=== PATIENT | male | born 1950 | race Caucasian/White ===

== ENCOUNTER 2020-08-25 23:11 | Observation (INO) | payer MEDICARE, MEDICAID ==
[~2020-08-25] VITALS: Ht 172.7 cm; Wt 97.6 kg
[2020-08-25] MEDS ORDERED: METO25TA35 PO (23:27)
[2020-08-25] MEDS ORDERED: ASPI-963 PO (23:27)
[2020-08-25] MEDS ORDERED: ATOR40TA PO (23:27)
--- NOTE | 2020-08-25 23:41 | NUR ---
70M COMES IN FOR CP X3-4 DAYS HX OF MD X2, DAUGHTER AT BEDSIDE, PT PLACED ON ALL MONITORING VSS, NADN AT THIS TIME. PIV STARTED, NO NEEDS AT THIS TIME
[2020-08-25 23:53] LABS: BASOPHILS % (AUTO) 1 % (0-1); EOSINOPHILS % (AUTO) 5 % (1-7); LYMPHOCYTES % (AUTO) 33 % (22-44); MEAN CORPUSCULAR HEMOGLOBIN 30.4 pg (27.5-34.5); MEAN CORPUSCULAR HGB CONC 34.2 g/dL (33.2-36.2); MEAN PLATELET VOLUME 7.3 fL (7.4-10.4); MONOCYTES % (AUTO) 10 % (2-9); NEUTROPHILS % (AUTO) 51 % (42-75); PLATELET COUNT 229 x10^3/uL (130-400); RED BLOOD COUNT 5.35 x10^6/uL (4.38-5.82); RED CELL DISTRIBUTION WIDTH 14.6 % (9.4-14.8)
[2020-08-26 00:04] LABS: ALANINE AMINOTRANSFERASE 31 U/L (12-78); ALBUMIN 3.5 g/dL (3.4-5.0); ANION GAP 7 mmol/L (5-15); CALCIUM 9.2 mg/dL (8.5-10.1); CHLORIDE 108 mmol/L (98-107); CREATININE 1.05 mg/dL (0.7-1.3)
[2020-08-26 00:08] LABS: ALKALINE PHOSPHATASE 102 U/L (45-117); BILIRUBIN,TOTAL 0.5 mg/dL (0.2-1.0); TOTAL PROTEIN 7.6 g/dL (6.4-8.2); TROPONIN I < 0.015 ng/mL (0.000-0.045)
[2020-08-26] MEDS ORDERED: ACETAMINOPHEN 325 MG TABLET PO PRN (01:30)
[2020-08-26] MEDS ORDERED: ONDANSETRON 2MG/ML, 2ML IV PRN (01:30)
[2020-08-26] MEDS ORDERED: NITROGLYCERIN 0.4 MG/SPRAY SL PRN (01:30)
[2020-08-26] MEDS ORDERED: morphine SULFATE 10 MG/ML, 1ML IV PRN (01:30)
[2020-08-26] MEDS ORDERED: HYDROcodone/APAP 5/325 TABLET PO PRN (01:30)
[2020-08-26] MEDS ORDERED: ZOLPIDEM 5MG TABLET PO PRN (01:30)
[2020-08-26] MEDS ORDERED: NITROGLYCERIN 0.4 MG BOTTLE (25 TABS) SL PRN (01:30)
--- NOTE | 2020-08-26 01:46 | NUR ---
REPORT TO CATHY AT THIS TIME PT READY FOR TRANSFER TO 508-2
[2020-08-26 02:09] VITALS: BP 128/80
[2020-08-26 02:40] VITALS: BP 128/80
[2020-08-26] MEDS ORDERED: HEPARIN 5,000 UNITS/ML, 1ML SQ SCH (03:00)
[2020-08-26 03:39] LABS: CHOL/HDL RATIO 3.1; CHOLESTEROL, TOTAL 110 mg/dL (140-239); HDL CHOL % 33 % (26-37); HDL CHOLESTEROL (DIRECT) 36 mg/dL (40-60); LDL CHOLESTEROL,CALCULATED 30 mg/dL (54-169); LDL/HDL RATIO 0.8 (0.5-3.0); TRIGLYCERIDES 221 mg/dL (50-200); TROPONIN I < 0.015 ng/mL (0.000-0.045); VLDL CHOLESTEROL 44 mg/dL (0-25)
[2020-08-26 05:27] LABS: MEAN CORPUSCULAR HEMOGLOBIN 30.5 pg (27.5-34.5); MEAN CORPUSCULAR HGB CONC 34.3 g/dL (33.2-36.2); MEAN PLATELET VOLUME 7.6 fL (7.4-10.4); PLATELET COUNT 221 x10^3/uL (130-400); RED BLOOD COUNT 5.02 x10^6/uL (4.38-5.82); RED CELL DISTRIBUTION WIDTH 14.8 % (9.4-14.8)
[2020-08-26 06:15] LABS: ANION GAP 5 mmol/L (5-15); CALCIUM 9.1 mg/dL (8.5-10.1); CHLORIDE 110 mmol/L (98-107); CREATININE 0.92 mg/dL (0.7-1.3)
[2020-08-26 06:18] LABS: TROPONIN I < 0.015 ng/mL (0.000-0.045)
[2020-08-26 07:31] VITALS: BP 127/76
[2020-08-26] MEDS ORDERED: SODIUM CHLORIDE FLUSH 10ML SYR IVF SCH (09:00)
[2020-08-26] MEDS ORDERED: ISOSORBIDE MONONITRATE ER 30 MG TABLET PO SCH (09:00)
[2020-08-26] MEDS ORDERED: METOPROLOL TARTRATE 25 MG TAB PO SCH (09:00)
[2020-08-26 09:42] VITALS: BP 143/87
[2020-08-26] MEDS ORDERED: REGADENOSON 0.4 MG/5 ML SYRINGE ONE (11:34)
[2020-08-26 13:10] VITALS: BP 117/60
[2020-08-26] MEDS ORDERED: ATORVASTATIN 40 MG TABLET PO SCH (21:00)
[2020-08-27] MEDS ORDERED: ASPIRIN 325 MG TABLET EC PO SCH (06:00)
== END 2020-08-26 16:44 | disposition home or self-care (01) ==
LOC: ED 08-26 01:26 → EDIP 08-26 01:57 → INTOOBSV 08-26 01:57 → 5SO 08-26 02:04 → DCLOUNGE 08-26 16:37
PROVIDERS: ADMIT Family Medicine; ATTEND Hospitalist
DX: R07.89 Other chest pain (principal); I25.10 Atherosclerotic heart disease of native coronary artery without angina pectoris; I10 Essential (primary) hypertension; E66.9 Obesity, unspecified; E78.5 Hyperlipidemia, unspecified; I25.2 Old myocardial infarction; Z95.1 Presence of aortocoronary bypass graft; Z79.82 Long term (current) use of aspirin; Z79.899 Other long term (current) drug therapy; Z95.5 Presence of coronary angioplasty implant and graft
CPT/HCPCS: 36415; 71045; 78452; 80048; 80053; 80061; 84484; 85025; 85027; 93005; 93017; 96372; 99285; A9502; G0378; J1644; J2785

== ENCOUNTER → 2020-11-22 | Outpatient (CLI) | payer MEDICARE, MEDICAID ==
[~2020-11-22] MED LIST: ASPI-963 PO; ATOR40TA PO; METO25TA35 PO
== END | disposition home or self-care (01) ==
LOC: CVU 12:14
PROVIDERS: ATTEND Internal Medicine Cardiovascular Disease
DX: I37.1 Nonrheumatic pulmonary valve insufficiency (principal); I65.23 Occlusion and stenosis of bilateral carotid arteries; I25.810 Atherosclerosis of coronary artery bypass graft(s) without angina pectoris; Z95.1 Presence of aortocoronary bypass graft
CPT/HCPCS: 93306; 93356; 93880